=== PATIENT | female | born 1995 | race Caucasian/White ===

== ENCOUNTER 2022-06-09 23:52 | Inpatient (IN) | payer OTHER ==
[2022-06-10 01:01] LABS: HCT 32.8 % (37.0-47.0); HGB 10.8 g/dl (12.5-16.0); MCH 27.1 pg (25.0-31.0); MCHC 32.9 g/dL (32.0-36.0); MCV 82.4 fL (78.0-100.0); MPV 11.3 fL (6.0-9.5); RBC 3.98 M/uL (4.20-5.40); RDW 12.3 % (11.5-14.0); WBC 11.4 K/uL (4.0-10.5)
[2022-06-10 01:21] LABS: ALBUMIN 2.6 g/dL (3.4-5.0); BILIRUBIN - TOTAL 0.2 mg/dL (0.2-1.0); BUN/CREAT RATIO (CALC) 13.2 RATIO; CREATININE 0.68 mg/dL (0.51-0.95); GLOBULIN (CALCULATION) 3.7 g/dL; POTASSIUM 3.2 mmol/L (3.5-5.1); TOTAL PROTEIN 6.3 g/dL (6.4-8.2)
[2022-06-10 01:31] LABS: CLARITY CLOUDY (CLEAR); COLOR YELLOW (YELLOW)
[2022-06-10 01:32] LABS: PROTEIN 2+ mg/dL (NEGATIVE); pH 7.5 (5.0-9.0)
[2022-06-10 01:33] LABS: BILIRUBIN 1+ mg/dL (NEGATIVE); BLOOD 3+ Ery/uL (NEGATIVE); GLUCOSE (U) NORMAL (NORMAL); LEUKOCYTES NEGATIVE Leu/uL (NEGATIVE); NITRITE NEGATIVE (NEGATIVE); UROBILINOGEN 0.2 mg/dL (0.2-1.0)
[2022-06-11 07:02] LABS: HCT 25.5 % (37.0-47.0); HGB 8.2 g/dl (12.5-16.0); MCH 27.2 pg (25.0-31.0); MCHC 32.2 g/dL (32.0-36.0); MCV 84.7 fL (78.0-100.0); MPV 10.9 fL (6.0-9.5); RBC 3.01 M/uL (4.20-5.40); RDW 12.7 % (11.5-14.0); WBC 13.7 K/uL (4.0-10.5)
== END 2022-06-12 13:30 | disposition home or self-care (01) | DRG 806 ==
LOC: FOD 23:52 → FOB 23:52 → FOD 06-10 01:01 → FOB 06-10 01:02
PROVIDERS: Obstetrics & Gynecology; ADMIT Specialist
PROC: 10E0XZZ Delivery of Products of Conception, External Approach (ICD-10-PCS; principal; 2022-06-10)
PROC: 0KQM0ZZ Repair Perineum Muscle, Open Approach (ICD-10-PCS; 2022-06-10)
DX: O24.420 Gestational diabetes mellitus in childbirth, diet controlled (principal); D62 Acute posthemorrhagic anemia; Z37.0 Single live birth; Z3A.37 37 weeks gestation of pregnancy; Z86.16 Personal history of COVID-19; O70.1 Second degree perineal laceration during delivery; O90.81 Anemia of the puerperium
CPT/HCPCS: 36415; 80053; 81003; 82009; 82947; 84112; 86850; 86900; 86901; J0595; J2300; J2405; J2916; J7120